=== PATIENT | female | born 2000 | race Two or more races ===

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

== ENCOUNTER 2023-02-27 16:35 | Emergency (ER) | payer MEDICAID, SELFPAY ==
--- NOTE | ~2023-02-27 | US_ITS ---
EXAMINATION: US OBSTETRICAL ULTRASOUND CLINICAL INFORMATION: Positive home urine test, lower abdominal pain COMPARISON: None. TECHNIQUE: Transabdominal and transvaginal images of the pelvis were obtained. Color and spectral Doppler evaluation of the ovaries was performed. FINDINGS: UTERUS: Anteverted. Normal size and contour. Uniform, thickened homogeneous endometrium measures up to 2.0 cm in combined bilayer thickness, compatible with secretory phase of the menstrual cycle. Small, slightly heterogeneous fluid within the fundal endometrial canal, likely small blood product. No discrete intradecidual gestational sac identified. RIGHT OVARY: Normal size and echogenicity measuring 3.6 x 2.7 x 2.8 cm. Normal size and appearance with normal Doppler vascularity. No adnexal mass identified. LEFT OVARY: Normal size and echogenicity measuring 3.6 x 2.8 x 2.2 cm. Normal size and appearance with normal Doppler vascularity. No adnexal mass identified. FREE FLUID: No pelvic free fluid. US/US OB pelvic and transvaginal IMPRESSION: Findings compatible with a of unknown location, which may reflect early intrauterine gestation, missed spontaneous , or ectopic , though none visualized. Recommend close clinical follow-up with trending of serum beta hCG levels and repeat ultrasound as clinically warranted.
[2023-02-27 16:37] VITALS: BP 120/70; PULSE 87; RESP 18; TEMP 36.3; O2SAT 100; BMI 22.7
[2023-02-27 17:04] LABS: Basophils Percent Auto 0.5 % (0-2); Eosinophils Percent Auto 0.5 % (0-4); Imm Gran Abs Auto 0.04 X10*3/uL (0.00-0.03); Imm Gran Pct Auto 0.5 % (0.0-0.4); Lymphocytes Absolute Auto 2.4 X10*3/uL (1.2-4.9); Lymphocytes Percent Auto 32.3 % (20-40); MANUAL DIFF FLAG NO; Mean Corpuscular HGB Conc 33.3 g/dl (31.0-35.0); Mean Corpuscular Hemoglobin 28.5 pg (27.0-33.0); Mean Corpuscular Volume 85.4 fL (80.0-98.0); Mean Platelet Volume 9.1 fL (9.4-12.3); Monocytes Absolute Auto 0.4 X10*3/uL (0.1-1.2); Monocytes Percent Auto 5.6 % (2-11); Neutrophils Absolute Auto 4.6 x10*3/uL (2.0-8.3); Neutrophils Percent Auto 60.6 % (45-73); Platelet Count 326 X10*3/uL (160-400); Red Blood Count 4.92 X10*6/uL (4.20-5.50); Red Cell Distribution Width 12.8 % (11.0-16.0); White Blood Count 7.6 X10*3/uL (4.8-10.8)
[2023-02-27 17:13] LABS: Appearance Urine Clear; Color Urine Yellow; Glucose Urine UA Negative (Negative); Leukocyte Esterase Urine Small (1+) (Negative); Nitrite Urine Negative (Negative); PH 5.5 (5.0-9.0); Specific Gravity - Urine >= 1.030 (1.005-1.025); UMIC TRIGGER UACC YES; Urine Blood Negative (Negative); Urine Ketones Negative (Negative); Urine Protein Negative (Neg-Trace)
--- NOTE | 2023-02-27 17:16 | ED_ITS ---
HPI - General Adult General Chief complaint: General Medical Stated complaint: Heavy cramps; Time Seen by Provider: 02/27/23 16:45 Source: patient Mode of arrival: ambulatory Limitations: no limitations History of Present Illness HPI narrative: Patient comes to the emergency room complaining of suprapubic cramping. Patient states that she recently found out that she is , home test was positive, patient estimates that she is approximately 2-4 weeks. Today, patient has been having suprapubic cramping, no nausea vomiting or diarrhea, no vaginal spotting or bleeding. Patient states that this would be her 1st Related Data Previous Rx's Medication Instructions Recorded cefuroxime axetil 250 mg tablet 250 mg PO BID #5 tabs 08/03/20 ibuprofen 600 mg tablet 600 mg PO Q8H PRN fever or pain 01/07/21 #10 tabs nitrofurantoin 100 mg PO BID 7 days #14 caps 01/07/21 monohydrate/macrocrystals 100 mg capsule (Macrobid) ondansetron 4 mg disintegrating 4 mg PO Q8H PRN nausea and 01/07/21 tablet vomiting #5 tabs doxycycline hyclate 100 mg capsule 100 mg PO BID 14 days #28 caps 12/06/21 metronidazole 500 mg tablet 500 mg PO BID 14 days #28 tabs 12/06/21 nitrofurantoin 100 mg PO Q12H 7 days #14 caps 12/06/21 monohydrate/macrocrystals 100 mg capsule (Macrobid) Allergies Allergy/AdvReac Type Severity Reaction Status Date / Time No Known Allergies Allergy Verified 02/27/23 16:36 Review of Systems 2 Review of Systems: Constitutional : No Weight loss, No Fever, No Chills, No Night Sweats, No Fatigue, No Malaise ENT/Mouth : No Hearing loss, No Ear Pain, No Nasal Congestion, No Sinus Pain, No Hoarseness, No sore throat, No Rhinorrhea, No Swallowing Difficulty Eyes: No Eye Pain, No Swelling, No Redness, No Foreign Body, No Discharge, No Vision Changes Cardiovascular : No Chest Pain, No SOB, No Dyspnea on Exertion, No Orthopnea, No Edema, No Palpitations Respiratory : No Cough, No Sputum, No Wheezing, No Smoke Exposure, No Dyspnea Gastrointestinal : No Nausea, No Vomiting, No Diarrhea, No Constipation, complaining of suprapubic cramping, No Hematochezia, No Melena Genitourinary : no vaginal bleeding, No Dysuria, No Urinary Frequency, No Hematuria, No Urinary Incontinence, No Urgency, No Flank Pain, No Urinary Flow Changes, No Hesitancy Musculoskeletal : No joint pain, No Myalgias, No Joint Swelling Skin : No Skin Lesions, No rash Neuro : No Weakness, No Numbness, No Paresthesias, No Loss of Consciousness, No Dizziness, No Headache Psych : No Anxiety/Panic, No Depression, No SI/HI/AH/VH, No Social Issues, Heme/Lymph: No Bruising, No Bleeding,No Lymphadenopathy Endocrine : No Polyuria, No Polydipsia, No Temperature Intolerance [facility] Past Medical History Medical History No active medical problems Social History Social History Advance Directives: No Advance Directives Information Provided: No Physical Exam ED Vital Signs: Vital Signs - 24 hr 02/27/23 16:37 02/27/23 19:07 Temperature 97.3 F 98.2 F Pulse Rate 87 96 Respiratory Rate 18 16 Blood Pressure 120/70 112/86 Pulse Oximetry 100 99 Oxygen Delivery Method Room Air Room Air BMI result Body Mass Index 22.7 Const Other: Appearance: Alert. Oriented X3. No acute distress. Well-appearing Eyes: Pupils equal, round and reactive to light. ENT: Pharynx normal. Neck: Normal inspection. Neck supple. No lymph nodes noted. No crepitus CVS: Normal heart rate and rhythm. Pulses normal. Normal S1 and S2 Respiratory: No respiratory distress. Breath sounds normal. No Wheezing. No rales Abdomen: Soft and nontender. No rigidity. No distention. No rebound, no tenderness Cervical exam: Patient declined exam Skin: Skin warm and dry. Normal skin color. Normal skin turgor. Extremities: No lower extremity edema. No Lacerations. No Rash Neuro: Oriented X 3. No motor deficit. No sensory deficit. Moving all extremities. No slurred speech. CN 2 through 12 grossly intact Psych: calm, cooperative, normal affect Medical Decision Making Medical Decision Making MDM Narrative: -I discussed with the patient that given that her test is positive, we can give her Tylenol for pain, patient agreeable. -ultrasound results: Findings compatible with of unknown location. At this time, the hCG levels are minimally elevated, today 196. -I discussed with the patient that this could be an early , versus missed spontaneous versus ectopic . At this time, the ovaries and the fallopian tubes do not show any signs of ectopic . I discussed signs of symptoms of ectopic with the patient in and to return to the emergency room immediately -patient will return to the ED or go to the outpatient lab for repeat HCG which is expected to double in a normal , patient will likely need an ultrasound in about a week. Patient was given the information to set up an appointment with OBGYN early this week -at this time, patient is well-appearing, comfortable, abdominal exam does not show any acute abdomen, ectopic is not suspected at this time. Differential Diagnosis Differential Diagnoses: The differential diagnosis associated with the presentation includes (Normal , missed spontaneous , ectopic ) Admission/Observation Consideration of admission/observation: Escalation of care including admission/observation considered (In the patient's symptoms and labs, admission was considered.) Lab Data MDM Lab Attestation statement: I reviewed the patient's lab results. 02/27/23 16:58 02/27/23 16:58 Labs: Lab Results 02/27/23 02/27/23 Range/Units 16:58 17:06 WBC 7.6 (4.8-10.8) X10*3/uL RBC 4.92 (4.20-5.50) X10*6/uL Hgb 14.0 (12.0-16.0) g/dl Hct 42.0 (37.0-47.0) % MCV 85.4 (80.0-98.0) fL MCH 28.5 (27.0-33.0) pg MCHC 33.3 (31.0-35.0) g/dl RDW 12.8 (11.0-16.0) % Plt Count 326 (160-400) X10*3/uL MPV 9.1 L (9.4-12.3) fL Immature Gran % (Auto) 0.5 H (0.0-0.4) % Neut % (Auto) 60.6 (45-73) % Lymph % (Auto) 32.3 (20-40) % [place] % (Auto) 5.6 (2-11) % Eos % (Auto) 0.5 (0-4) % Baso % (Auto) 0.5 (0-2) % Lymph # (Auto) 2.4 (1.2-4.9) X10*3/uL [place] # (Auto) 0.4 (0.1-1.2) X10*3/uL Eos # (Auto) 0.0 (0.0-0.4) X10*3/uL Baso # (Auto) 0.0 (0.0-0.2) X10*3/uL Abs Immat Gran (auto) 0.04 H (0.00-0.03) X10*3/uL Absolute Neuts (auto) 4.6 (2.0-8.3) x10*3/uL Absolute Nucleated RBC 0.000 (0.0-0.012) X10*3/uL Nucleated RBC % (auto) 0.0 (0.0-0.2) /100WBC Sodium 139 (135-145) mmol/L Potassium 3.5 (3.3-5.1) mmol/L Chloride 107 (96-108) mmol/L Carbon Dioxide 24 (22-29) mmol/L Anion Gap 12 (12-20) BUN 11 (9-16) mg/dL Creatinine 0.69 (0.5-1.4) mg/dL Estim Creat Clear Calc 98.1 Estimated GFR > 60 Random Glucose 74 (60-115) mg/dL Calcium 9.8 (8.4-10.2) mg/dL Magnesium 2.1 (1.6-2.6) mg/dL Total Bilirubin 0.7 (0.0-1.0) mg/dL Direct Bilirubin 0.3 (0.0-0.5) mg/dL AST 16 (5-31) U/L ALT 9 (0-31) U/L Alkaline Phosphatase 76 (39-117) U/L Total Protein 7.6 (6.5-8.0) g/dL Albumin 4.3 (3.5-5.0) g/dL Beta HCG, Quant 196 mIU/mL Urine Color Yellow Urine Appearance Clear Urine pH 5.5 (5.0-9.0) Ur Specific [place] >= 1.030 H (1.005-1.025) Urine Protein Negative (Neg-Trace) mg/dL Urine Glucose (UA) Negative (Negative) mg/dL Urine Ketones Negative (Negative) mg/dL Urine Blood Negative (Negative) Urine Nitrite Negative (Negative) Ur Leukocyte Esterase Small (1+) H (Negative) Urine RBC 0-2 (0-2) /HPF Urine WBC 11-20 H (0-5) /HPF Ur Squamous Epith Cells 6-10 (0-2) /HPF Urine Bacteria 1+ (None Seen) Hyaline Casts 0-2 (0-2) /LPF Blood Type O Positive Independent Interpretation I performed an independent interpretation of an: Ultrasound (My interpretation of ultrasound : No gestational sac visualized) Radiology Impression Discussion of test interpretation with radiology: I have reviewed the radiologist's reading. Radiologist Impression: UTERUS: Anteverted. Normal size and contour. Uniform, thickened homogeneous endometrium measures up to 2.0 cm in combined bilayer thickness, compatible with secretory phase of the menstrual cycle. Small, slightly heterogeneous fluid within the fundal endometrial canal, likely small blood product. No discrete intradecidual gestational sac identified. RIGHT OVARY: Normal size and echogenicity measuring 3.6 x 2.7 x 2.8 cm. Normal size and appearance with normal Doppler vascularity. No adnexal mass identified. LEFT OVARY: Normal size and echogenicity measuring 3.6 x 2.8 x 2.2 cm. Normal size and appearance with normal Doppler vascularity. No adnexal mass identified. FREE FLUID: No pelvic free fluid. US/US OB pelvic and transvaginal IMPRESSION: Findings compatible with a of unknown location, which may reflect early intrauterine gestation, missed spontaneous , or ectopic , though none visualized. Recommend close clinical follow-up with trending of serum beta hCG levels and repeat ultrasound as clinically warranted. Independent Historian Clinical information obtained from an independent historian. History obtained from or confirmed by: Spouse Critical Care Time Critical Care Time Critical Care Time: Yes Total Critical Care Time: 60 Attestation: I have personally provided critical care time. Time includes review of lab data, radiology results, discussion with consultants, and monitoring for potential decompensation. Intervention performed as documented. Discharge Plan Discharge Clinical Impression: Elevated level of quantitative hCG for gestational age in early Patient Disposition: Home, Self-Care Instructions: Abdominal Pain in (ED) Additional Instructions: Please return in 48 hours to the emergency room to get your blood drawn and recheck the hCG level ( hormone), or very early on Tuesday morning through the outpatient labs. Please follow-up with your primary care physician tomorrow. If you have any worsening or new symptoms, please return to the emergency room or call 911 Prescriptions: No Action cefuroxime axetil 250 mg tablet 250 mg PO BID Qty: 5 0RF nitrofurantoin monohyd/m-cryst [Macrobid] 100 mg capsule 100 mg PO BID 7 Days Qty: 14 0RF Rx Instructions: must administer with a meal/food ondansetron 4 mg tablet,disintegrating 4 mg PO Q8H PRN (Reason: nausea and vomiting) Qty: 5 0RF ibuprofen 600 mg tablet 600 mg PO Q8H PRN (Reason: fever or pain) Qty: 10 0RF metronidazole 500 mg tablet 500 mg PO BID 14 Days Qty: 28 0RF doxycycline hyclate 100 mg capsule 100 mg PO BID 14 Days Qty: 28 0RF nitrofurantoin monohyd/m-cryst [Macrobid] 100 mg capsule 100 mg PO Q12H 7 Days Qty: 14 0RF Rx Instructions: must administer with a meal/food Referrals: Oni Roche MD [Physician] - 03/02/23 8:00 am
[2023-02-27 17:18] LABS: Bacteria Urine 1+ (None Seen); Hyaline Casts Urine 0-2 /LPF (0-2); RBC Urine 0-2 /HPF (0-2); UACC Culture Trigger YES
[2023-02-27 17:27] LABS: Alanine Aminotransferase 9 U/L (0-31); Albumin Level 4.3 g/dL (3.5-5.0); Alkaline Phosphatase 76 U/L (39-117); Anion Gap 12 (12-20); Aspartate Amino Transferase 16 U/L (5-31); Bilirubin Direct 0.3 mg/dL (0.0-0.5); Bilirubin Total 0.7 mg/dL (0.0-1.0); Blood Urea Nitrogen 11 mg/dL (9-16); Calcium 9.8 mg/dL (8.4-10.2); Carbon Dioxide 24 mmol/L (22-29); Chloride 107 mmol/L (96-108); Creatinine Clr Calc Pharmacy 98.1; Estimated Glomerular Filt Rate > 60; Glucose Random 74 mg/dL (60-115); HCG Quantitative 196 mIU/mL; Magnesium 2.1 mg/dL (1.6-2.6); Potassium 3.5 mmol/L (3.3-5.1); Sodium 139 mmol/L (135-145); Total Protein 7.6 g/dL (6.5-8.0)
[2023-02-27 19:07] VITALS: BP 112/86; PULSE 96; RESP 16; TEMP 36.8; O2SAT 99
== END 2023-02-27 19:52 | disposition home or self-care (01) ==
PROVIDERS: Physician Assistant; Emergency Provider Emergency Medicine
DX: O26.891 Other specified pregnancy related conditions, first trimester (principal); R10.9 Unspecified abdominal pain
CPT/HCPCS: 36415; 76801; 76817; 80048; 80076; 81001; 83735; 84702; 85025; 86900; 86901; 87086; 99284

== ENCOUNTER 2023-03-02 06:59 | Outpatient (REF) | payer MEDICAID, SELFPAY ==
[2023-03-02 08:06] LABS: HCG Quantitative 194 mIU/mL
== END 2023-03-02 07:00 | disposition home or self-care (01) ==
LOC: HO.LAB 06:59
PROVIDERS: Referring Provider Obstetrics & Gynecology; Visit Provider Emergency Medicine
DX: Z32.00 Encounter for pregnancy test, result unknown (principal)
CPT/HCPCS: 36415; 84702